=== PATIENT | female | born 1995 | race Caucasian/White ===

== ENCOUNTER 2020-04-26 15:55 | Outpatient (CLI) | payer BC, SELFPAY | END 2020-04-26 15:56 | disposition home or self-care (01) | LOC: ANHCOVIDVC 15:55 | PROVIDERS: PCP Physician Assistant | DX: Z23 Encounter for immunization (principal) | CPT/HCPCS: 0001A; 91300 ==

== ENCOUNTER 2020-05-09 10:46 | Emergency (ER) | payer BC, SELFPAY ==
[2020-05-09 10:58] VITALS: BP 130/63; PULSE 58; RESP 12; TEMP 36.9; O2SAT 100
--- NOTE | 2020-05-09 11:17 | ED.EAR ---
HPI - Ear Problem General Chief complaint: Ear Stated complaint: HEARING LOSS R EAR/RINGING Time Seen by Provider: 05/09/20 11:18 Source: patient Mode of arrival: ambulatory Limitations: no limitations History of Present Illness HPI Narrative: Marlon Ogden is a 24 yo female with no PMH who comes to [facility] with 3 days of pain on her right ear. She has had ear infections before and she feels like there is water in her ear and that it is congested so she cannot hear. She used a Q tip to try and clear the canal Related Data Home Medications Medication Instructions Recorded Confirmed albuterol sulfate 90 mcg/actuation 1 puff INHALATION Q4H PRN 03/27/20 03/27/20 aerosol inhaler Allergies Allergy/AdvReac Type Severity Reaction Status Date / Time No Known Allergies Allergy Verified 05/09/20 10:50 Review of Systems Review of Systems: Narrative: CONSTITUTIONAL: Denies fever, chills, sweats. EYES: Denies visual changes, redness, discharge. ENT: Denies rhinorrhea, congestion, sore throat, right otalgia. Feels like there is water in her ear and she can hear CARDIOVASCULAR: Denies chest pain, palpitations, edema. RESPIRATORY: Denies dyspnea, wheezing, cough GASTROINTESTINAL: Denies abdominal pain, nausea, vomiting, diarrhea. GENITOURINARY: Denies dysuria, hematuria, abnormal discharge SKIN: Denies rash or itching. NEUROLOGIC: Denies numbness, or focal weakness. PSYCHIATRIC: Denies anxiety or depression. PMFSH Past Medical History Medical History No acute medical problems Family History Family History Father Hypertension Social History Social History Smoking status: Never smoker Alcohol intake: current Substance use: never Gender identity (if verbalized by the patient): Female Comments At time of signature, I agree with nursing past medical, surgical, social and family history. There is no relevant family history pertinent to the presenting complaint. Exam Narrative: Exam Narrative: GENERAL: This is a well-nourished, well-developed patient, in mild distress. HEAD: normocephalic, atraumatic. EYES: . Sclera clear/white. Vision is grossly intact. EARS: External ears normal, auditory canals erythema and without drainage, TMs normal without perforation., TM bulging. hearing grossly intact. NOSE: External nose normal without nasal discharge, nares without redness, no rhinorrhea. THROAT: Mucous membranes moist, NECK: Neck supple, non-tender CARDIOVASCULAR: Regular rate and rhythm without murmurs, gallops, or rubs. RESPIRATORY: Clear to auscultation. Breath sounds equal bilaterally. No wheezes, rales, or rhonchi. GASTROINTESTINAL: Abdomen soft, non-tender, SKIN: warm, intact with no suspicious lesions or rash, good texture and turgor. NEURO: awake, alert, and oriented to person, place and time. There were no obvious focal neurologic abnormalities. Steady gait EXTREMITIES: Normal range of motion. BACK: Nontender without deformity Course Course Emergency Course: Patient came with complaints of right ear clogging Right ear irrigated Patient started on polymyxin and Zyrtec Vital Signs Vital signs: Vital Signs Temperature 98.4 F 05/09/20 10:58 Pulse Rate 58 L 05/09/20 10:58 Respiratory Rate 12 05/09/20 10:58 Blood Pressure 130/63 05/09/20 10:58 Pulse Oximetry 100 05/09/20 10:58 Temperature 98.4 F 05/09/20 10:58 Pulse Rate 58 L 05/09/20 10:58 Respiratory Rate 12 05/09/20 10:58 Blood Pressure 130/63 05/09/20 10:58 Pulse Oximetry 100 05/09/20 10:58 Procedures Other Procedure Procedure 1: Other Procedure: Right ear irrigation-irrigated with 100 cc of peroxide and warm water, mild return of white substance Medical Decision Making Differential Diagnosis Differential Diagnosis: Otitis
== END 2020-05-09 11:50 | disposition home or self-care (01) ==
PROVIDERS: Emergency Provider Nurse Practitioner; PCP Physician Assistant
DX: H66.001 Acute suppurative otitis media without spontaneous rupture of ear drum, right ear (principal); T16.1XXA Foreign body in right ear, initial encounter
CPT/HCPCS: 99213; G0463

== ENCOUNTER 2020-05-20 15:48 | Outpatient (CLI) | payer BC, SELFPAY | END 2020-05-20 15:49 | disposition home or self-care (01) | LOC: ANHCOVIDVC 15:48 | PROVIDERS: PCP Physician Assistant | DX: Z23 Encounter for immunization (principal) | CPT/HCPCS: 0002A; 91300 ==

== ENCOUNTER → 2021-01-17 03:57 | Outpatient (CLI) | payer BC, SELFPAY ==
[2021-01-17 19:27] LABS: SARS-CoV-2 RNA PCR Negative
== END ==
PROVIDERS: PCP Physician Assistant; Visit Provider Physician Assistant
DX: R09.81 Nasal congestion (principal); Z20.822 Contact with and (suspected) exposure to COVID-19
CPT/HCPCS: C9803; U0003; U0005

== ENCOUNTER → 2021-02-03 10:31 | Outpatient (CLI) | payer BC, SELFPAY ==
--- NOTE | ~2021-02-03 | XR_ITS ---
EXAMINATION: XR UGIAC wo kub EXAM DATE: 02/03/2021 11:20 INDICATION: Indigestion, reflux. TECHNIQUE: Standard single and double contrast barium upper GI examination was performed by radiolog ist Marito Barba M.D. Pulsed dose reduction fluoroscopy was used with fluoroscopic time of 0.4 minut es. The DAP for this procedure was 0.9 Gycm2. A total of 89 images obtained for the exam. There is no prior study for comparison. FINDINGS: There is no esophageal stricture, diverticulum or mass identified. No sizable gastroesophag eal hiatal hernia. Small amount of reflux was demonstrated during the exam. The stomach has a normal appearance without evidence of mass lesion, ulceration or filling defect. T here is normal rugal fold pattern. The duodenum and duodenal sweep are normal in appearance. IMPRESSION: Small amount of reflux demonstrated. Otherwise unremarkable exam. Reviewed, dictated and finalized at location A. GROWER
== END ==
PROVIDERS: PCP Physician Assistant; Visit Provider Physician Assistant
DX: K30 Functional dyspepsia (principal)
CPT/HCPCS: 74246

== ENCOUNTER 2021-02-18 15:49 | Outpatient (CLI) | payer BC, SELFPAY ==
--- NOTE | ~2021-02-18 | XR_ITS ---
EXAMINATION: XR abdomen/kub 1V INDICATION: Right ureteral stone TECHNIQUE: Supine views of the abdomen were obtained on 2 radiographs. COMPARISON: None FINDINGS: There is a 1 mm calcification of the right pelvis which could reflect a right distal ureter al stone. A left pelvic calcification has the appearance of a phlebolith. The bowel gas pattern is no rmal. There is a moderate volume of colonic stool. IMPRESSION: 1. Possible right distal ureteral stone. Reviewed, dictated and finalized at location F. AD CUTTER
== END 2021-02-18 15:50 | disposition home or self-care (01) ==
PROVIDERS: PCP Physician Assistant; Visit Provider Nurse Practitioner Family
DX: N20.1 Calculus of ureter (principal)
CPT/HCPCS: 74018

== ENCOUNTER 2021-02-21 00:18 | Day surgery (SDC) | payer BC, SELFPAY ==
[2021-02-20 13:51] VITALS: BMI 30.7
--- NOTE | 2021-02-20 14:00 | PC.NURSE ---
Report to the Outpatient Waiting Room, entrance under the green pavilion located off [facility], at time 1130 on date 02/21/21. OR Time: 1330. - You will be asked a series of questions to screen for COVID 19 for your protection. - A mask is required within the hospital. - No visitors are allowed at this time. Preoperative COVID Testing Requirements: No COVID Test needed if: (proof is required; if not received patient will have Rapid Test prior to entry) - Patient has received COVID Vaccine at least 14 days prior to procedure date or - Patient has positive COVID test result within last 90 days of surgery date. COVID Test needed if above criteria is not met Patients may have clear liquids (water, carbonated beverages, clear teas, apple juice) until 3 hours prior to surgery with a maximum of 20 ounces. - No food from midnight until time of surgery Take the following medications with a SIP of water the morning of surgery: NONE Medications to discontinue per physician: N/A Date to take last dose: N/A Please no make-up, nail icelandic, hairspray, perfume, deodorant, or body powder the day of surgery. No jewelry (including any body piercings) or valuables the day of surgery, leave them at home. Please take a shower or bath the night before, or the morning of, surgery with an antibacterial soap. Wear comfortable, loose fitting clothing. - Jewelry must be removed prior to entering the operating room. Rings and piercings that are not removed may be cut off. - The hospital will not accept responsibility for valuables. - Please leave all valuables, including medications, at home the day of surgery. If you are going home after surgery, a licensed jinrikisha driver must drive you home. - NO public transportation without another adult. - We recommend that an adult stay with you for 24 hours following discharge. - We also recommend that you do not drive, make important decision, drink alcoholic beverages, or take any drugs that were not prescribed by your health care provider for at least 24 hours after your discharge time. Follow any additional instructions given to you from your surgeon. Telephone instructions given to MALINA WILHELM and asked if any additional questions and then verbalized understanding. Patient advised to call surgeon office or pre surgery nurse liaison [phone] if any additional questions.
[2021-02-21] VITALS (9 sets, daily range): BP systolic 92–125; BP diastolic 49–72; PULSE 48–72; RESP 10–16; TEMP 36.3–36.7; O2SAT 98–100
--- NOTE | ~2021-02-21 | XR_ITS ---
EXAMINATION: XR fluoroscopy no charge EXAM DATE: 02/21/2021 12:52 INDICATION: Stone removal. TECHNIQUE: Fluoroscopy used during right ureteral stone removal performed by Dr. Kieran Loya MD. Radiologist was not present for the imaging or procedure. Total fluoroscopic time 25 seconds. The DAP for this procedure was 3.2 mGym2. A total of 8 images sent to PACS from the exam. FINDINGS: Right ureter was cannulated. There is balloon plasty which could be across the UVJ. Corre late with procedure note. IMPRESSION: Fluoroscopy used during right ureteral stone removal. Reviewed, dictated and finalized at location A. ADMINISTRATOR
--- NOTE | 2021-02-21 06:54 | WPDHPUPDATE1 ---
History and Physical Update Update Date/Time: 02/21/21 06:54 History and Physical has been reviewed, including an updated exam of the patient. There are NO changes in the patient's condition. Risks, benefits, and alternatives have been discussed and questions answered. Patient agrees to proceed with procedure.
--- NOTE | 2021-02-21 10:36 | WPDANESEPPF ---
Anes - Initial Pre Proc Eval Procedure: Operation Date: 02/21/21 13:30 Proposed Procedures p Right Ureteroscopy with Stone Extraction, Possible Stent Placement - Kieran Loya MD Date/Time: 02/21/21 10:36 Surgeon: Kieran Loya MD Pre Op Diagnosis: right ureteral stones Patient Data Age: 25 Gender: F Height: 1.68 m Weight: 86.18 kg Allergies Allergy/AdvReac Type Severity Reaction Status Date / Time No Known Allergies Allergy Verified 02/21/21 11:37 Home Medications Medication Instructions Recorded Confirmed Type ketorolac 10 mg PO Q6H PRN 02/20/21 02/21/21 History Patient hx anesthesia problems: none Family hx anesthesia problems: none Results Review: All pre-operative results and documents have been reviewed as part of the pre-operative evaluation. [facility] Past Medical History Medical History (Updated 02/21/21 @ 10:36 by Nicholas Petersen DO) Asthma No acute medical problems Family History Family History Father Hypertension Social History Social History Smoking status: Never smoker Alcohol intake: never Substance use: never Substance use type: does not use Living arrangements: with family Gender identity (if verbalized by the patient): Female Spiritual care concerns: No Anes - Eval Final PreProcedure Day of Procedure 02/21/21 10:36 Patient weight: obese Heart: regular rate and rhythm Lungs: clear to auscultation and normal air movement Airway: Mallampati scale class II Neurological: alert and oriented Last oral intake: >/= 8 hours ASA classification: II Emergent: no Anesthetic plan: proceed Anesthesia type and monitoring: general LMA and standard monitoring Results Review: All pre-operative results and documents have been reviewed as part of the pre-operative evaluation. Informed Consent: The patient's anesthetic plan and its attendant risks and benefits were discussed with the patient/family/POA. Questions were solicited and answers provided to the satisfaction of the patient/family/POA.
[2021-02-21] MEDS: LACTATED RINGERS 1,000 ML 30 ML IV CONT (11:56)
[2021-02-21] MEDS: ceFAZolin 2 GM/D5W 50 ML 2 GM/50 ML BAG IVPB (12:18)
[2021-02-21] MEDS: KETOROLAC 30 MG/ML VIAL (*BKC) IV PUSH (12:47)
--- NOTE | 2021-02-21 12:50 | W.PM.PROC2 ---
Procedure Note - Detailed Date of Procedure 02/21/21 Pre-op Diagnosis Right ureteral stones Post-op Diagnosis other (1. Right ureterocele 2. Probable right distal ureteral stone) Procedure Performed Cystoscopy, right ureteroscopy Surgeon Kieran Loya MD Anesthesia general Findings 1. Right ureterocele 2. Possible right ureteral stone Description of Procedure Patient is brought to the office where she was prepped draped in routine sterile fashion while in the dorsal lithotomy position after the uneventful induction of a general LMA anesthetic. Cystoscopy is undertaken with a 19 F rigid cystoscope. She has a right ureterocele with and otherwise endoscopically normal bladder. There was no intravesical foreign body or neoplasm. Mucosa was without hyperemia or signs of neoplasm. 0.035 in glidewire was advanced in the right renal pelvis. The right ureteral orifice was gently dilated with a 4 cm balloon at 12 atmospheres for 2 minutes. Right ureteroscopy was undertaken. There appears to be some stone fragments which may have disintegrated with balloon dilatation. None of these were large enough to be retrieved. Because of the simplicity of this procedure opted not to place ureteral stent. Scopes wires removed. She tolerated the procedure well. Drains No Packing No Pathology none sent Complications No immediate complications Condition stable Disposition PACU
[2021-02-21] MEDS: fentaNYL CITRATE INJ (*CRX) 100 MCG/2 ML VIAL 25 MCG IV PUSH ×2 (13:20→13:43)
--- NOTE | 2021-02-21 13:38 | SUR.PHASEI ---
1338-awake, c/o pain right flank.
[2021-02-21] MEDS: ONDANSETRON INJ 4 MG/2 ML VIAL IV PUSH (14:09)
[2021-02-21] MEDS: oxyCODONE HCL (*CRX) 5 MG TAB IR PO (14:22)
--- NOTE | 2021-02-21 15:22 | SUR.PHASEII ---
pt was being transported to the and was becoming nauseated. this nurse called dr kyle.
[2021-02-21] MEDS: SCOPOLAMINE 1.5 MG PATCH TRANSDERM (15:30)
[2021-02-21] MEDS: diphenhydrAMINE HCl CAP 25 MG CAPSULE PO (15:30)
--- NOTE | 2021-02-21 15:47 | SUR.PHASEII ---
pt said she feel better to go home
== END 2021-02-21 15:51 | disposition home or self-care (01) ==
PROVIDERS: PCP Physician Assistant; Visit Provider Urology
PROC: (CPT 52352; principal; 2021-02-21 13:30)
DX: N20.1 Calculus of ureter (principal); N28.89 Other specified disorders of kidney and ureter; R10.31 Right lower quadrant pain; R11.0 Nausea; R35.0 Frequency of micturition; R39.15 Urgency of urination; F12.90 Cannabis use, unspecified, uncomplicated; J45.909 Unspecified asthma, uncomplicated; E66.9 Obesity, unspecified; Z68.31 Body mass index [BMI] 31.0-31.9, adult
CPT/HCPCS: 52351; A9270; C1726; C1769; J0690; J1100; J1885; J2250; J2405; J2704; J3010; J7120; Q9966

== ENCOUNTER 2021-03-06 08:55 | Outpatient (CLI) | payer BC, SELFPAY ==
--- NOTE | ~2021-03-06 | XR_ITS ---
EXAMINATION: XR abdomen/kub 1V EXAM DATE: 03/06/2021 10:07 INDICATION: RT ureteral stone,. TECHNIQUE: Frontal projection(s) of the abdomen for interpretation. Comparison is made to prior exami nation from 02/18/2021. FINDINGS: There are 2 pelvic calcifications, a punctate right sided and a 5 mm left-sided calcificati on, both appear unchanged in position. The right side does overlie expected location of the UVJ. This finding has been indicated, marked on the examination for review, clinical correlation. Moderate am ount of upper abdominal colonic stool and gas obscuring the renal contours. No small bowel obstructio n. There are no osseous abnormalities identified. IMPRESSION: 2 pelvic calcifications unchanged; if patient symptomatic, UVJ stone not excludable. Reviewed, dictated and finalized at location A. ERS COMPENSATION LEGAL SECRETARY IMPRESSION: 2 pelvic calcifications unchanged; if patient symptomatic, UVJ sto ne not excludable.
--- NOTE | ~2021-03-06 | US_ITS ---
EXAMINATION: US renal BI DATE: 03/06/2021 10:09 INDICATION: Right ureteral stone. TECHNIQUE: Multiple ultrasound grayscale images of the kidneys were obtained. COMPARISON: None. FINDINGS: The right kidney measures 11.2 x 4.6 x 3.8 cm. The left kidney measures 10.2 x 5.3 x 5.4 cm. The kidn eys demonstrate normal parenchymal echogenicity. There is no hydronephrosis. The bladder is normal. IMPRESSION: 1. Normal kidneys. No hydronephrosis. Reviewed, dictated and finalized at location A. ISION LENS GENERATOR
== END 2021-03-06 08:56 | disposition home or self-care (01) ==
LOC: ANHIMG 09:01
PROVIDERS: PCP Physician Assistant; Visit Provider Nurse Practitioner Family
DX: N20.1 Calculus of ureter (principal)
CPT/HCPCS: 74018; 76775

== ENCOUNTER 2021-03-11 12:00 | Day surgery (SDC) | payer BC, SELFPAY ==
[2021-03-11] VITALS (10 sets, daily range): BP systolic 99–135; BP diastolic 47–72; PULSE 53–88; RESP 12–20; TEMP 36.1–36.8; O2SAT 99–100; BMI 31.3
--- NOTE | ~2021-03-11 | XR_ITS ---
EXAMINATION: XR retrograde pyelo w/stent RT DATE: 03/11/2021 14:10 INDICATION: Right ureteral stone TECHNIQUE: 6 fluoroscopic images of the abdomen and pelvis were obtained during procedure performed b kylee Bradley. Radiologist was not present for the imaging or procedure. The amount of fluoroscopy t carolyn used during this procedure was 0.2 minutes. COMPARISON: 03/06/2021 FINDINGS: The larger calcifications in the left hemipelvis is evident on the senior marketing coordinator radiograph likely representi ng a phlebolith. The smaller calcification in the right hemipelvis suspicious for a right ureteral st one is no longer visualized. Subsequent images demonstrate cannulation and retrograde contrast inject ions into the right ureter which demonstrate no evident filling defects or strictures. Final images d emonstrate placement of a right internal ureteral stent with proximal loop formed in the right renal pelvis. IMPRESSION: 1. Fluoroscopy utilized during right retrograde ureterogram and right internal ureteral stent placeme nt with proximal loop in expected position at the right renal pelvis. See procedure note for further detail. Reviewed, dictated and finalized at location A. BAKER IMPRESSION: 1. Fluoroscopy utilized during right retrograde ureterogram and right internal ureteral stent placement with proximal loop in expected position at the right r enal pelvis. See procedure note for further detail.
--- NOTE | ~2021-03-11 | CT_ITS ---
EXAMINATION: CT abdomen pelvis wo con EXAM DATE: 03/11/2021 16:33 INDICATION: Renal protocol. Ureteroceles. TECHNIQUE: Spiral CT of the abdomen and pelvis was performed without contrast. Axial, coronal and sag ittal images were reviewed. The dose-length product (DLP) for this examination was 266.18 mGy-cm. T he exposure was tailored according to patient size (auto mA exposure control), and iterative reconstr uction (ASIR) was used as additional dose reduction technique. There is no prior study for compariso n. FINDINGS: There is a right double-J ureteral stent in expected position. There is a 3 mm calcificatio n adjacent to the distal aspect of the stent, probably phlebolith given patient had ureteroscopy twic e and no stone was identified. There is a larger left-sided pelvic calcification, phlebolith. No anibal ceal stones. The uterus and ovaries are unremarkable, no adnexal mass. The bladder is unremarkable. The liver, spleen, adrenal glands and pancreas are unremarkable. Gallbladder is unremarkable. No b iliary obstruction. There is no retroperitoneal or pelvic lymphadenopathy. The appendix is normal. The stomach and small bowel are unremarkable. There is expected amount of c olonic stool. No free intraperitoneal gas. The heart is normal in size. There are no pericardial or pleural effusions. Bibasilar linear atelectasis. The bones are unremarkable. IMPRESSION: 1. Small right pelvic calcification adjacent to the stent, could be phlebolith given history provide d. Correlation could be made with prior imaging. 2. No acute findings. Reviewed, dictated and finalized at location G. HAULER IMPRESSION: 1. Small right pelvic calcification adjacent to the stent, could be phlebolith given history provided. Correlation could be made with prior imaging. 2. No acute findings.
--- NOTE | 2021-03-11 12:10 | PC.NURSE ---
Report to the Outpatient Waiting Room, entrance under the green pavilion located off [facility], at time 1200 on date 03/11/21. OR Time: 1400. - You will be asked a series of questions to screen for COVID 19 for your protection. - A mask is required within the hospital. - No visitors are allowed at this time. Preoperative COVID Testing Requirements: No COVID Test needed if: (proof is required; if not received patient will have Rapid Test prior to entry) - Patient has received COVID Vaccine at least 14 days prior to procedure date or - Patient has positive COVID test result within last 90 days of surgery date. COVID Test needed if above criteria is not met Patients may have clear liquids (water, carbonated beverages, clear teas, apple juice) until 3 hours prior to surgery with a maximum of 20 ounces. - No food from midnight until time of surgery Take the following medications with a SIP of water the morning of surgery: NONE Medications to discontinue per physician: N/A Date to take last dose: N/A Please no make-up, nail arabic, hairspray, perfume, deodorant, or body powder the day of surgery. No jewelry (including any body piercings) or valuables the day of surgery, leave them at home. Please take a shower or bath the night before, or the morning of, surgery with an antibacterial soap. Wear comfortable, loose fitting clothing. - Jewelry must be removed prior to entering the operating room. Rings and piercings that are not removed may be cut off. - The hospital will not accept responsibility for valuables. - Please leave all valuables, including medications, at home the day of surgery. If you are going home after surgery, a licensed flatbed truck driver must drive you home. - NO public transportation without another adult. - We recommend that an adult stay with you for 24 hours following discharge. - We also recommend that you do not drive, make important decision, drink alcoholic beverages, or take any drugs that were not prescribed by your health care provider for at least 24 hours after your discharge time. Follow any additional instructions given to you from your surgeon. Telephone instructions given to MALINA WILHELM and asked if any additional questions and then verbalized understanding. Patient advised to call surgeon office or pre surgery nurse liaison [phone] if any additional questions.
--- NOTE | 2021-03-11 13:04 | WPDANESEPPF ---
Anes - Initial Pre Proc Eval Procedure: Operation Date: 03/11/21 14:00 Proposed Procedures p Cystoscopy, Right Ureteroscopy, Possible Right Stone Extraction, Possible Right Stent Placement - Francis Bradley MD Date/Time: 03/11/21 13:04 Surgeon: Francis Bradley MD Pre Op Diagnosis: right kidney stone, pain Patient Data Age: 25 Gender: F Height: 1.68 m Weight: 88 kg Allergies Allergy/AdvReac Type Severity Reaction Status Date / Time No Known Allergies Allergy Verified 03/11/21 12:07 Home Medications Medication Instructions Recorded Confirmed Type ketorolac 10 mg PO Q6H PRN 02/20/21 03/11/21 History Patient hx anesthesia problems: post op nausea/vomiting Family hx anesthesia problems: none Results Review: All pre-operative results and documents have been reviewed as part of the pre-operative evaluation. [facility] Past Medical History Medical History Asthma No acute medical problems Family History Family History Father Hypertension Social History Social History Smoking status: Never smoker Alcohol intake: never Substance use: never Substance use type: does not use Living arrangements: with family Gender identity (if verbalized by the patient): Female Spiritual care concerns: No Anes - Eval Final PreProcedure Day of Procedure 03/11/21 13:04 Patient weight: overweight Heart: regular rate and rhythm Lungs: clear to auscultation Airway: Mallampati scale class II Neurological: alert and oriented Last oral intake: 4 hours ASA classification: II Emergent: yes Anesthetic plan: proceed Anesthesia type and monitoring: general ETT and standard monitoring Results Review: All pre-operative results and documents have been reviewed as part of the pre-operative evaluation. Informed Consent: The patient's anesthetic plan and its attendant risks and benefits were discussed with the patient/family/POA. Questions were solicited and answers provided to the satisfaction of the patient/family/POA.
[2021-03-11] MEDS: LACTATED RINGERS 1,000 ML 30 ML IV CONT ×2 (13:17→14:18)
--- NOTE | 2021-03-11 13:22 | WPDHPUPDATE1 ---
History and Physical Update Update Date/Time: 03/11/21 13:22 History and Physical has been reviewed, including an updated exam of the patient. There are NO changes in the patient's condition. Risks, benefits, and alternatives have been discussed and questions answered. Patient agrees to proceed with procedure.
[2021-03-11] MEDS: SCOPOLAMINE 1.5 MG PATCH TRANSDERM (13:27)
[2021-03-11] MEDS: ceFAZolin 2 GM/D5W 50 ML 2 GM/50 ML BAG IVPB (13:34)
[2021-03-11] MEDS: LIDOCAINE HCL 2% GEL UROJET 10 ML PKG MUCOUS MEM (13:48)
--- NOTE | 2021-03-11 14:09 | W.PM.PROC2 ---
Procedure Note - Detailed Date of Procedure 03/11/21 Pre-op Diagnosis Persistent right renal colic with hydro Post-op Diagnosis same (Bilateral ureteral seals right greater than left) Procedure Performed Cystoscopy, right retrograde pyelogram, right ureteroscopy, right ureteral stent placement 4.8 Niuean contour Surgeon Francis Bradley MD Anesthesia general Description of Procedure Patient is taken the operative suite correctly identified. Once anesthesia was obtained she was placed in dorsal lithotomy position and prepped and draped usual sterile fashion 22 Niuean scope was inserted the bladder. There is no tumors noted. Patient has bilateral ureteral seals with the right side being larger than the left. There was a calcification in the left lower pelvis and thus I a wire was placed into the left ureteral orifice. It was evident from this that the calcification was outside the ureter. We then turned our attention to the right side. A rigid ureteral scope was able to be entered into the ureteral orifice and ureteral seal. This was inspected its entirety. There was no stone present in the ureterocele nor in the ureter. Pyelogram was then performed. This confirms placement of the stent. 4.8 Niuean contour stent was then placed with the proximal end coiled in the right renal pelvis and the distal in the bladder. Bladder is drained. 2% viscous lidocaine was inserted urethra patient is taken recovery room stable condition. Patient can follow up with Dr. Loya in approximated week's time for possible stent removal. Strange have the pain just started now with this presumed distal stone. If pain persists after stent removal then possibly incision of the ureterocele may be indicated to see if that relieves her discomfort. Drains Yes Packing No Pathology none sent Complications No immediate complications Condition stable Disposition PACU
[2021-03-11] MEDS: fentaNYL CITRATE INJ (*CRX) 100 MCG/2 ML VIAL 25 MCG IV PUSH (14:31)
[2021-03-11] MEDS: ONDANSETRON INJ 4 MG/2 ML VIAL IV PUSH (14:46)
[2021-03-11] MEDS: KETOROLAC 30 MG/ML VIAL (*BKC) IV PUSH (15:05)
[2021-03-11] MEDS: oxyCODONE HCL (*CRX) 5 MG TAB IR PO (15:35)
[2021-03-11] MEDS: OXYBUTYNIN CHLORIDE 5 MG TABLET PO (17:15)
== END 2021-03-11 17:47 | disposition home or self-care (01) ==
PROVIDERS: PCP Physician Assistant; Visit Provider Urology
PROC: (CPT 52352; principal; 2021-03-11 14:00)
DX: N13.30 Unspecified hydronephrosis (principal); N28.89 Other specified disorders of kidney and ureter
CPT/HCPCS: 52332; 74176; 74420; A9270; C1758; C1769; C2617; J0330; J0690; J1100; J1170; J1885; J2250; J2405; J2704; J3010; J7120; Q9966

== ENCOUNTER 2021-03-12 18:47 | Emergency (ER) | payer BC, SELFPAY ==
[2021-03-12] VITALS (18 sets, daily range): BP systolic 131; BP diastolic 60–66; PULSE 71; RESP 14; TEMP 36.8–38; O2SAT 99–100
--- NOTE | ~2021-03-12 | XR_ITS ---
EXAMINATION: XR chest 2V EXAM DATE: 03/12/2021 19:21 INDICATION: Fever,Abd Pain Across,Nausea,Stent Placed Yesterday. TECHNIQUE: Frontal and lateral projections of the chest obtained and reviewed. Comparison is made to prior examination from 06/06/2018. FINDINGS: The lungs are clear. There are no pleural effusions. The cardiomediastinal silhouette is within normal limits. There is no pneumothorax suspected. The bones and soft tissues are unremarkab le. IMPRESSION: No acute cardiopulmonary findings. Reviewed, dictated and finalized at location G. D SUPERVISOR
--- NOTE | ~2021-03-12 | XR_ITS ---
EXAMINATION: XR abdomen/kub 1V EXAM DATE: 03/12/2021 19:21 INDICATION: Fever,Abd Pain Across,Nausea,Stent Placed Yesterday. Evaluated stent. TECHNIQUE: Frontal projection(s) of the abdomen for interpretation. Comparison is made to prior exami nation from 03/06/2021. FINDINGS: Interval placement of a right-sided double-J ureteral stent, in expected position. Previou sly seen right pelvic calcification projects about 7 mm lateral to the stent, consistent with phlebol ith. There is moderate amount of colonic stool and gas. No dilated small bowel, no obstruction. IMPRESSION: 1. Right double-J ureteral stent in expected position. 2. Moderate colonic stool and gas. Reviewed, dictated and finalized at location G. RMATION TECHNOLOGY ANALYST
[2021-03-12] MEDS: SODIUM CHLORIDE 0.9% IV 1,000 ML 999 ML IV CONT (19:43)
[2021-03-12] MEDS: MORPHINE SULFATE (*CRX) 4 MG/ML INJ IV PUSH (19:44)
--- NOTE | 2021-03-12 19:52 | ED.FEVER ---
HPI - Fever General Chief Complaint: Fever Stated Complaint: fever, renal stent placed yest Time Seen by Provider: 03/12/21 18:52 History of Present Illness HPI Narrative: Patient is a 25-year-old female who presents ER with lower abdominal pain and fever. Patient underwent right ureteral stenting yesterday by Dr. Bradley. Patient has uroceles bilaterally. She reports today she has been having dysuria. She is also notes right lower quadrant discomfort that she thought was likely related to the stent because she was told it would cause pain. She has been taking oxybutynin for spasm. She developed fever around 11 AM. She reports backaches. No runny nose. Mild sore throat from intubation. No cough/chest pain. Related Data Home Medications Medication Instructions Recorded Confirmed ketorolac 10 mg PO Q6H PRN 02/20/21 03/11/21 Allergies Allergy/AdvReac Type Severity Reaction Status Date / Time No Known Allergies Allergy Verified 03/11/21 12:07 Review of Systems Review of Systems: All systems reviewed & are unremarkable except as noted in HPI and below Constitutional: Constitutional: Reports chills, Reports fatigue and Reports fever(s) ENT: Denies nasal congestion and Reports sore throat Cardiovascular: Cardiovascular: Denies chest pain, Denies rapid heart rate and Denies radiating jaw, neck or arm pain Respiratory: Respiratory: Denies cough and Denies dyspnea Gastrointestinal: Gastrointestinal: Reports abdominal pain, Denies diarrhea, Denies nausea and Denies vomiting Genitourinary: Genitourinary: Denies abnormal vaginal bleeding, Reports dysuria and Denies flank pain Musculoskeletal: Musculoskeletal: Reports back pain and Denies muscle cramps PMFSH Past Medical History Medical History (Updated 03/12/21 @ 21:01 by Jose Edwards MD) Asthma No acute medical problems Surgical History Surgical History (Updated 03/12/21 @ 19:56 by Jose Edwards MD) S/P ureteral stent placement Family History Family History Father Hypertension Social History Social History Smoking status: Never smoker Alcohol intake: never Substance use: never Substance use type: does not use Gender identity (if verbalized by the patient): Female Spiritual care concerns: No Exam Narrative: GENERAL: Uncomfortable-appearing, well-nourished, and in no acute distress. HEAD: Normocephalic, atraumatic. EYES: PERRL and EOMI. CHEST: Clear to auscultation. No respiratory distress. HEART: Regular rate and rhythm. Normal peripheral pulses. ABDOMEN: Soft, nontender, nondistended, no CVA tenderness. EXTREMITIES: Normal range of motion. No edema. SKIN: Warm, dry, no rash. NEURO: Alert and oriented x3. PSYCH: Normal mood and affect. Course Course Emergency Course: Discussed dx and tx plan. D/c. Reevaluation(s) Reevaluation #1: Discussed with Dr. Bradley. Give Ceftriaxone 1g, switch abx to cipro. Keep f/u. Add norco for pain control. Date: 03/12/21 Time: 21:00 Vital Signs Vital signs: Vital Signs Temperature 98.2 F 03/12/21 18:56 Pulse Rate 71 03/12/21 18:56 Respiratory Rate 14 03/12/21 18:56 Blood Pressure 131/60 03/12/21 18:56 Pulse Oximetry 100 03/12/21 18:56 Temperature 98.2 F 03/12/21 18:56 Pulse Rate 71 03/12/21 18:56 Respiratory Rate 14 03/12/21 18:56 Blood Pressure 131/60 03/12/21 18:56 Pulse Oximetry 100 03/12/21 19:45 MDM - Fever Lab Data Result diagrams: 03/12/21 19:48 03/12/21 19:48 Labs: Lab Results 03/12/21 03/12/21 03/12/21 Range/Units 19:48 19:48 19:48 WBC 11.3 H (4.5-10.0) K/mm3 RBC 4.26 (4.2-5.4) M/mm3 Hgb 13.1 (12.0-15.0) g/dL Hct 38.9 (37.0-47.0) % MCV 91.3 (80-100) fl MCH 30.8 (26-34) pg MCHC 33.7 (32-36) g/dl RDW 12.6 (11.5-14.5) % Plt Count 31
[2021-03-12 19:57] LABS: Basophils Percent Auto 0.2 % (0.2-1.2); Eosinophils Absolute Auto 0.4 K/mm3 (0-0.3); Eosinophils Percent Auto 3.7 % (0-4.4); Hematocrit 38.9 % (37.0-47.0); Hemoglobin 13.1 g/dL (12.0-15.0); Immature Granulocyte Absolute 0.02 K/mm3 (0.00-0.031); Immature Granulocyte Percent A 0.2 % (0-0.5); Lymphocytes Percent Auto 12.4 % (18.3-44.2); Mean Corpuscular HGB Conc 33.7 g/dl (32-36); Mean Corpuscular Hemoglobin 30.8 pg (26-34); Mean Corpuscular Volume 91.3 fl (80-100); Mean Platelet Volume 9.4 fl (7.4-10.4); Monocytes Absolute Auto 0.9 K/mm3 (0.1-0.6); Monocytes Percent Auto 8.3 % (2.6-8.5); Neutrophils Absolute Auto 8.5 K/mm3 (1.3-6.7); Neutrophils Percent Auto 75.2 % (45.5-73.1); Platelet Count Result 311 k/mm3 (150-375); Red Blood Count 4.26 M/mm3 (4.2-5.4); Red Cell Distribution Width 12.6 % (11.5-14.5); White Blood Count 11.3 K/mm3 (4.5-10.0)
[2021-03-12 20:03] LABS: Add Urine Microscopic? YES; Appearance Urine Clear (Clear); Bacteria Urine Trace /hpf; Bilirubin Urine Negative (Negative); Blood Urine 3+ (Negative); Color Urine Straw (Yellow); Glucose Urine UA Negative (Negative); Ketones Urine Negative (Negative); Leukocyte Esterase Ur Negative LEU/UL (Negative); Mucus Urine Rare /lpf; Nitrate Urine Negative (Negative); Protein Urine 1+ mg/dL (Negative); RBC Urine 21-50 /hpf (0-2); Specific Grav Ur 1.003 (1.001-1.035); Squamous Epithelial Cell Urine Occasional /hpf (Few); Urobilinogen Urine Negative mg/dL (<2.0); WBC Urine 0-3 /hpf
[2021-03-12 20:05] LABS: Lactic Acid Reflex 0.9 mmol/L (0.7-2.1)
[2021-03-12 20:07] LABS: Alanine Aminotransferase 19 U/L (4-35); Albumin Level 4.2 g/dL (3.5-5.1); Alkaline Phosphatase 48 U/L (38-126); Anion Gap 5 mmol/L (8-16); Aspartate Amino Transferase 28 U/L (14-36); Bilirubin,Total 1.1 mg/dL (0.2-1.3); Blood Urea Nitrogen 12 mg/dL (7-17); Calcium 8.8 mg/dL (8.4-10.2); Carbon Dioxide 23 mmol/L (22-30); Chloride 104 mmol/L (98-107); Estimated CRCL calculation 76 ml/min; Estimated Glomerular Filt Rate 56; Glucose 98 mg/dL (65-110); Potassium 3.3 mmol/L (3.4-5.0); Sodium 132 mmol/L (137-145)
[2021-03-12] MEDS: HYDROcodone/acetaminophen (*CRX) 5-325 MG TABLET 1 TAB PO (21:20)
[2021-03-12] MEDS: ONDANSETRON INJ 4 MG/2 ML VIAL IV PUSH (21:30)
[2021-03-12] MEDS: ACETAMINOPHEN 500 MG TABLET PO (21:40)
== END 2021-03-12 22:24 | disposition home or self-care (01) ==
PROVIDERS: Emergency Provider Emergency Medicine; PCP Urology
DX: R50.9 Fever, unspecified (principal); R50.82 Postprocedural fever; Z96.0 Presence of urogenital implants; J45.909 Unspecified asthma, uncomplicated
CPT/HCPCS: 36415; 71046; 74018; 80053; 81001; 81025; 83605; 85025; 96361; 96365; 96375; 99284; A9270; J0696; J2270; J2405; J7030

== ENCOUNTER → 2021-05-02 12:47 | Outpatient (CLI) | payer BC, SELFPAY ==
--- NOTE | ~2021-05-02 | CT_ITS ---
EXAMINATION: CT abdomen pelvis wo con DATE: 05/02/2021 13:17 INDICATION: Right flank pain. History of kidney stone and stent. TECHNIQUE: Computed tomography (CT) of the abdomen and pelvis was performed without intravenous contr ast. Automated exposure control and iterative reconstruction technique were employed. Exam dose: 747 .95 mGy-cm total exam DLP. COMPARISON: March 11, [address] abdomen pelvis FINDINGS: The lung bases are clear. Normal heart size. No pericardial or pleural effusion. The liver, gallbladder, bile ducts, spleen, pancreas, pancreatic duct, and adrenal glands and kidneys are unremarkable. No urinary tract calculus or hydroureteronephrosis. Urinary bladder, uterus and ad nexal areas are unremarkable. No evidence of appendicitis. No bowel obstruction, bowel wall thickening, pneumatosis or intraperiton eal free air is detected. Very small fat-containing umbilical hernia. Included skeletal structures are unremarkable. IMPRESSION: No urinary tract calculus or hydroureteronephrosis or other significant abnormality Reviewed, dictated and finalized at [facility]. Reviewed, dictated and finalized at location A. IMPRESSION: No urinary tract calculus or hydroureteronephrosis or other signifi cant abnormality
--- NOTE | ~2021-05-02 | XR_ITS ---
EXAMINATION: XR abdomen/kub 1V INDICATION: Right flank pain TECHNIQUE: Supine views of the abdomen were obtained on 2 radiographs. COMPARISON: CT from today FINDINGS: There are phleboliths of the pelvis. No urolithiasis identified. There is a moderate volume of colonic stool. The visualized osseous structures are unremarkable. IMPRESSION: 1. No urolithiasis identified. Reviewed, dictated and finalized at location B.
== END ==
PROVIDERS: PCP Physician Assistant; Visit Provider Nurse Practitioner Family
DX: R10.9 Unspecified abdominal pain (principal)
CPT/HCPCS: 74018; 74176

== ENCOUNTER 2021-05-19 13:30 | Outpatient (CLI) | payer BC, SELFPAY ==
--- NOTE | ~2021-05-19 | NM_ITS ---
EXAMINATION: [facility] renal scan DATE: 05/19/2021 14:59 INDICATION: Right ureteral stone. TECHNIQUE: 8 mCi Tc-99m MAG3 was administered IV. 40 mg furosemide was administered IV immediately a fterward. The patient was scanned in the supine position. A posterior abdominal radionuclide angiogra m was obtained. A subsequent time course of static images of the kidneys, ureters, and bladder was ob tained. COMPARISON: CT abdomen and pelvis 05/02/2021 FINDINGS: The posterior abdominal radionuclide angiogram and sequential static images show normal siz e, position, and morphology of the kidneys. Peak renal parenchymal uptake was 2 min in right kidney a nd 2 min in left kidney (normal peak 3-5 minutes). The relative early renal uptake was 49% on the ri ght and 51% on the left (<40% is abnormal). No abnormalities of the ureters or bladder are seen. T1/2 for clearance of activity from the right kidney and proximal collecting system was 5 minutes. T1/2 for clearance of activity from the left kidney and proximal collecting system was 4 minutes. IMPRESSION: 1. Symmetric kidney function. 2. No delay in contrast clearance from either kidney to suggest fixed obstruction. Reviewed, dictated and finalized at location A. IMPRESSION: 1. Symmetric kidney function. 2. No delay in contrast clearance from either kidney to suggest fixed obstruct ion.
== END 2021-05-19 13:31 | disposition home or self-care (01) ==
LOC: ANHIMG 13:31
PROVIDERS: PCP Physician Assistant; Visit Provider Nurse Practitioner Family
DX: N20.1 Calculus of ureter (principal)
CPT/HCPCS: 78708; A9562; J1940

== ENCOUNTER → 2021-07-10 16:31 | Outpatient (CLI) | payer BC, SELFPAY ==
--- NOTE | ~2021-07-10 | XR_ITS ---
XR thoracic spine 2V 07/10/2021 17:01 Indication: Thoracic radiculopathy Procedure: 3 views of the thoracic spine Comparison: No prior studies for comparison. Findings: Vertebral body heights are maintained. No fracture, subluxation or dislocation. Pedicles in tact. No paraspinal soft tissue abnormality. Visualized lung parenchyma is unremarkable. Impression: 1: No significant abnormality of the thoracic spine. Reviewed, dictated and finalized at location A. Impression: 1: No significant abnormality of the thoracic spine.
== END ==
PROVIDERS: PCP Physician Assistant; Visit Provider Physician Assistant
DX: M54.14 Radiculopathy, thoracic region (principal)
CPT/HCPCS: 72070

== ENCOUNTER 2021-07-11 10:21 | Outpatient (CLI) | payer BC, SELFPAY ==
--- NOTE | ~2021-07-11 | NM_ITS ---
EXAMINATION: NM hepatobiliary wo pharm DATE: 07/11/2021 13:32 INDICATION: Right upper quadrant abdominal pain. COMPARISON: CT abdomen and pelvis 05/02/2021 TECHNIQUE: 4.4 mCi Tc-99m mebrofenin (Choletec) was administered intravenously. Scintigraphic images of the abdomen were obtained for one hour. Then, the patient drank 8 oz Ensure, and imaging was cont inued for 60 minutes. FINDINGS: There is normal clearance of radiotracer from the blood pool. There is homogeneous tracer u ptake by the liver. Activity progresses to the bowel and gallbladder. Gallbladder ejection fraction (GBEF) was 41%. Note that with this technique, normal GBEF >= 33%. IMPRESSION: 1. Normal hepatobiliary scintigraphy. Reviewed, dictated and finalized at location A.
== END 2021-07-11 10:22 | disposition home or self-care (01) ==
PROVIDERS: PCP Physician Assistant; Visit Provider Physician Assistant
DX: R10.11 Right upper quadrant pain (principal)
CPT/HCPCS: 78226; A9537

== ENCOUNTER 2021-09-22 06:44 | Outpatient (CLI) | payer BC, SELFPAY ==
--- NOTE | ~2021-09-22 | CT_ITS ---
EXAMINATION: CT abdomen pelvis wo con DATE: 09/22/2021 07:05 INDICATION: Right flank pain TECHNIQUE: Computed tomography (CT) of the abdomen and pelvis was performed without intravenous contr ast. The dose-length product (DLP) was 269.64 mGy-cm. Automated exposure control and iterative recons truction technique were employed. COMPARISON: 05/02/2021 FINDINGS: The lung bases are clear. The heart size is normal. The liver, spleen, pancreas, gallbladde r, and adrenal glands are normal. The kidneys are unremarkable. No stones are identified in the kidne ys, ureters, or bladder. There is no hydronephrosis or hydroureter. No pathologically enlarged abdomi nal or pelvic lymph nodes are identified. There is no free intraperitoneal gas or evidence of bowel o bstruction. The appendix is normal. A moderate volume of colonic stool is present. IMPRESSION: 1. No CT correlate for the patient's symptoms. No urolithiasis identified. Reviewed, dictated and finalized at location A.
--- NOTE | ~2021-09-22 | XR_ITS ---
EXAMINATION: XR abdomen/kub 1V INDICATION: Right flank pain TECHNIQUE: Supine views of the abdomen were obtained on 2 radiographs. COMPARISON: 05/02/2021 FINDINGS: No urolithiasis is identified. There is a moderate volume of colonic stool. Phleboliths are noted in the pelvis. IMPRESSION: 1. No urolithiasis identified. Reviewed, dictated and finalized at location A.
== END 2021-09-22 06:45 | disposition home or self-care (01) ==
PROVIDERS: PCP Physician Assistant; Visit Provider Nurse Practitioner Family
DX: R10.9 Unspecified abdominal pain (principal)
CPT/HCPCS: 74018; 74176

== ENCOUNTER → 2021-10-06 15:10 | Outpatient (CLI) | payer BC, SELFPAY ==
--- NOTE | ~2021-10-06 | US_ITS ---
EXAMINATION: US transvaginal DATE: 10/06/2021 15:37 INDICATION: Right lower quadrant abdominal pain. Pelvic pain. TECHNIQUE: Multiple transvaginal sonographic images of the pelvis were obtained. COMPARISON: CT abdomen and pelvis 09/22/2021 FINDINGS: The uterus measures 6.4 x 3.1 x 4.1 cm. There is no free fluid in the pelvis. The endometrial complex measures 8 mm in thickness. The right ovary measures 3.7 x 2.3 x 2.0 cm. The left ovary measures 1.4 x 1.6 x 1.4 cm. There is normal vascular flow in the ovaries. IMPRESSION: 1. Normal pelvis. Reviewed, dictated and finalized at location A. IMPRESSION: 1. Normal pelvis.
== END ==
PROVIDERS: PCP Physician Assistant; Visit Provider Nurse Practitioner
DX: R10.2 Pelvic and perineal pain (principal)
CPT/HCPCS: 76830